=== PATIENT | female | born 1985 | race Caucasian/White ===

== ENCOUNTER 2017-09-14 14:30 | Emergency (ER) | payer SELFPAY ==
[~2017-09-14] VITALS: Ht 170.2 cm; Wt 56.7 kg
[2017-09-14 14:30] VITALS: BP_SYST 134
[2017-09-14] MEDS ORDERED: KETOROLAC TROMETHAMINE 60 MG/2 ML VIAL IM ONE (16:00)
[2017-09-14 16:20] VITALS: BP_SYST 130
== END 2017-09-14 16:20 | disposition home or self-care (01) ==
LOC: SED 14:30
DX: S93.401A Sprain of unspecified ligament of right ankle, initial encounter (principal); W18.40XA Slipping, tripping and stumbling without falling, unspecified, initial encounter; Y93.01 Activity, walking, marching and hiking; Y92.89 Other specified places as the place of occurrence of the external cause; Y99.8 Other external cause status
CPT/HCPCS: 29515; 73610; 96372; 99284; J1885